=== PATIENT | female | born 1935 | race Native Hawaiian/Other Pacific Islander ===

== ENCOUNTER 2017-09-18 12:02 | Emergency (ER) | payer OTHER, MEDICARE ==
[2017-09-18 12:09] VITALS: BMI 21.4
[2017-09-18 12:13] VITALS: RESP 18; O2SAT 95
--- NOTE | 2017-09-18 15:23 | RAD ---
PROCEDURE: HISTORY: right scapula area ecchymosis s/p fall 2 days ago COMPARISON: None TECHNIQUE: Three views FINDINGS: Acromioclavicular joint space narrowing. Glenohumeral mild osteoarthrosis. No gross rib fracture or gross scapular fracture appreciated. This is a difficult area to evaluate with conventional radiographs. If clinical symptoms persist consider more sensitive evaluation with noncontrast CT of the right scapula IMPRESSION: No gross fracture appreciated. No shoulder dislocation. Mild senescent changes Please note the above comments
[2017-09-18 15:39] LABS: BASO % 0.3 % (0.0-2.0); EOS % 0.1 % (0.0-4.0); LYMPH # 0.6 K/uL (1.0-4.3); MEAN CORPUSCULAR HGB CONC 33.6 g/dL (33.0-37.0); MEAN PLATELET VOLUME 8.7 fL (7.2-11.7); NRBC % 0.1 % (0.0-2.0)
--- NOTE | 2017-09-18 15:39 | RAD ---
PROCEDURE: Radiographs of the Chest and Right Ribs. HISTORY: Right lateral chest wall pain s/p fall 2 days ago COMPARISON: None available. TECHNIQUE: Frontal radiograph of the chest and multiple oblique radiographs of the right ribs were obtained. FINDINGS: RIGHT RIBS: There are slight cortical offset osteopenia ribs probably the latter right 5th, 6th 7th, and 8th in all even the anterior lateral 10 possibly 11th ribs as well. LUNGS: No consolidation noted. Oval opacity projects over the lateral right mid lung zone - of unclear significance. The clip is in the lung or extrinsic to the lung it appears to hide be a nipple shadow . No prior chest x-rays are available to assess its stability PLEURA: No pleural fluid. . CARDIOVASCULAR: Normal sized heart. No pulmonary vascular congestion. OTHER FINDINGS: There is L3 vertebral body compression deformity also incidentally noted of unknown chronicity. IMPRESSION: Multiple nondisplaced a right rib fractures as detailed above. No gross pleural effusion. A right supero lateral pneumothorax is a consideration. The possible pleural reflection on series 6, image 1. Findings were discussed with the ER physician,Dr Perales on 09/18/2017 at 3:35 p.m. Indeterminate oval opacity lateral right mid lung zone. Its origin intrinsic or extrinsic to the right lung is indeterminate. Recommend comparison with any outside chest x-ray L3 vertebral body compression deformity -chronicity unknown
[2017-09-18 15:47] LABS: HEMATOCRIT 34.7 % (34.0-47.0); MEAN CORPUSCULAR HEMOGLOBIN 28.3 pg (27.0-31.0); MONO # 0.7 K/uL (0.0-0.8); MONO % 9.8 % (0.0-10.0); WHITE BLOOD COUNT 7.2 K/uL (4.8-10.8)
[2017-09-18 15:49] LABS: MEAN CELL VOLUME 84.1 fL (81.0-99.0); PLATELET COUNT 115 K/uL (130-400)
[2017-09-18 15:53] LABS: ALB/GLOB RATIO 1.1 (1.0-2.1); ALKALINE PHOSPHATASE 67 U/L (38-126); ALT/SGPT 11 U/L (9-52); AST/SGOT 20 U/L (14-36); BLOOD UREA NITROGEN 13 mg/dL (7-17); CALCIUM 8.5 mg/dl (8.6-10.4); CARBON DIOXIDE 33 mmol/L (22-30); CHLORIDE 83 mmol/L (98-107); GFR AFRICAN-AMERICAN > 60; GLUCOSE,RANDOM 97 mg/dL (65-105); POTASSIUM 2.7 mmol/L (3.6-5.2); SODIUM 127 mmol/L (132-148)
--- NOTE | 2017-09-18 16:34 | CT ---
PROCEDURE: CT Lumbar Spine without contrast HISTORY: Low back pain. fx on x-ray. COMPARISON: None. TECHNIQUE: Axial computed tomography images were obtained of the lumbar spine without the use of intravenous contrast. Coronal and sagittal reformatted images were created and reviewed. Radiation dose: Total exam DLP = 347.41 mGy-cm. This CT exam was performed using one or more of the following dose reduction techniques: Automated exposure control, adjustment of the mA and/or kV according to patient size, and/or use of iterative reconstruction technique. FINDINGS: VERTEBRAE: There is a severe compression fracture of the L3 vertebral body with mild retropulsion of the posterior margins of the vertebral body particularly toward the left. This results and a moderate severe right lateral recess stenosis at the mid vertebral body level but not at L2-3 or at L3-4. No spondylolisthesis or additional fracture. Lumbar curvature is generally normal. Diffuse osteopenia suggests osteoporosis which is the likely etiology, at least in part, for the L3 fracture. No definitive suspicious lytic or blastic change. Multilevel facet arthropathy is appreciated. Prevertebral paraspinal soft tissues appear grossly nonfocal. DISCS/SPINAL CANAL/NEURAL FORAMINA: T11-12, T12-L1 and, L1-2: No bony central canal or neural foraminal stenosis is encountered. L2-3: Borderline disc bulging is appreciated without significant stenosis resulting. Facet arthropathy is mild. No significant neural foraminal stenosis. L3-4: L3 compression fractures appreciated cephalad to this level. Limited disc bulging is appreciated flattening the ventral thecal sac and encroaching the right greater than left lateral recesses without significant central canal stenosis resulting. Facet arthropathy appears mild. No significant neural foraminal stenosis. L4-5: A generalized disc bulge is moderate in overall volume however facet arthropathy is gross, resulting in moderate central canal stenosis, most concentrated at the left greater the right lateral recesses. No significant neural foraminal stenosis bilaterally. L5-S1: Limited disc bulging is appreciate here and although there is relatively prominent facet arthropathy, no significant stenosis is encountered at the bilateral neural foramina or at the central canal. PARASPINAL SOFT TISSUES: Unremarkable. OTHER FINDINGS: None. IMPRESSION: A severe L3 compression fractures appreciated resulting in lateral recess stenosis greater at the left than right sides of the central canal and a mild generalized central canal stenosis. This stenosis occurs above L3-4 as well as below L2-3. Moderate degenerative L4-5 central canal stenosis. No definitive disc herniation grossly evident however MRI is more sensitive. No additional fracture. Diffuse osteopenia suggests osteoporosis.
[2017-09-18 16:45] LABS: NEUTROPHIL 84 % (50-75); TOTAL CELLS COUNTED 100
--- NOTE | 2017-09-18 16:58 | CT ---
PROCEDURE: CT Chest without contrast HISTORY: Right sided pain s/p fall COMPARISON: Chest radiograph also performed 09/18/2017. TECHNIQUE: Contiguous axial images were obtained through the chest without intravenous contrast enhancement. Sagittal and coronal reconstructions were performed. Radiation dose (DLP): 200.14 mGy-cm. This CT exam was performed using one or more of the following dose reduction techniques: Automated exposure control, adjustment of the mA and/or kV according to patient size, and/or use of iterative reconstruction technique. FINDINGS: LUNGS: Fibrotic changes in the left apex and gross bronchiectasis is appreciated affecting left upper lobe with hyperexpansion of the left lower lobe a chronic atelectasis felt a the present the left apex where a cavitary lesion is simulated in. This is felt to represent a gross dictate atelectatic left upper lobe with gross bronchiectasis associated likely on a chronic basis. MEDIASTINUM: The lack images contrast limits evaluation of the mediastinum. No gross lymphadenopathy is appreciable including the bilateral hilar regions. The thoracic aorta is normal in caliber swells the main pulmonary artery. Cardiac size appears upper limits of normal. Normal sized heart. PLEURA: There is a partially calcified subpleural granuloma at the right upper lobe in images 44 through 46 series 4 likely corresponding to the ovoid calcific density in chest radiograph 09/18/2017 as well. BONES: There is severe compression fracture of the T4 vertebral body. There is minimal retropulsion of the right and mid T4 vertebral body posterior wall into the central canal without significantly causing intra canal stenosis. The right lateral recess is stenosed as result. Right 3rd, 4th, 5th and 6th anterolateral rib fractures are identified as well as left 4th and 5th anterolateral rib fractures. Nondisplaced lateral fracture of the right 7th, 8th and 9th ribs are also identified. Diffuse osteopenia suggests osteoporosis. UPPER ABDOMEN: Cholelithiasis identified within a mildly distended gallbladder. OTHER FINDINGS: None. IMPRESSION: 1. Multiple bilateral rib fractures are appreciated but are seen greater the right than left sides as described above. There is also severe T4 vertebral body compression fracture without spondylolisthesis or prominent central canal stenosis resulting. No pneumothorax or pleural effusion bilaterally. 2. Extensive bronchiectasis and gross volume loss/scarring is felt to be affecting the left upper lobe which is minimal in overall volume. A hyper expanded left low left lower lobe is felt to present. There is no distant prior study available for comparison and clinical follow-up is advised to demonstrate stability of this finding. Underlying neoplasm would be difficult to fully exclude here.
[2017-09-18] MEDS ORDERED: Potassium Chloride 20 mEq ER Tab PO STA (17:50)
[2017-09-18] MEDS ORDERED: Potassium Chloride 20 mEq ER Tab PO ONE (17:58)
--- NOTE | 2017-09-18 18:01 | C.PDOC ---
- HPI Time Seen by Provider: 09/18/17 13:00 Chief Complaint (Nursing): Trauma History Per: Patient, Family History/Exam Limitations: other (Dementia) Injury Occurred (Timing): Days Ago: (2) Location Of Injury: Right: Chest Severity: Moderate Additional History Per: Prior Records - Fall Fall:Prior To Injury: Tripped (over a vaccum filter screen cleaner) Past Medical History Reviewed: Historical Data, Nursing Documentation, Vital Signs Vital Signs: Last Vital Signs Temp 98.0 F 09/18/17 15:30 Pulse 83 09/18/17 15:30 Resp 18 09/18/17 15:30 BP 142/71 09/18/17 15:30 Pulse Ox 95 09/18/17 15:30 - Medical History PMH: Asthma, Dementia, Parkinson's Disease Surgical History: Appendectomy Family History: States: Unknown Family Hx - Social History Hx Tobacco Use: No Hx Alcohol Use: No Hx Substance Use: No - Immunization History Hx Tetanus Toxoid Vaccination: No Hx Influenza Vaccination: No Hx Pneumococcal Vaccination: No Review Of Systems Except As Marked, All Systems Reviewed And Found Negative. Constitutional: Negative for: Fever Cardiovascular: Positive for: Chest Pain Respiratory: Negative for: Hemoptysis Gastrointestinal: Negative for: Vomiting, Abdominal Pain Genitourinary: Negative for: Hematuria Musculoskeletal: Positive for: Back Pain. Negative for: Neck Pain Skin: Negative for: Rash Neurological: Negative for: Weakness, Numbness, Seizures, Altered Mental Status , Headache Physical Exam - Physical Exam Appears: Non-toxic, No Acute Distress, Chronically Ill Skin: Warm, Dry Head: Atraumatic, Normacephalic Eye(s): bilateral: PERRL, EOMI Neck: Normal ROM, No Midline Cervical Tenderness, No Step Off Deformity, Supple Chest: Symmetrical, No Deformity, Tenderness (right sided) Cardiovascular: Rhythm Regular Respiratory: Normal Breath Sounds, No Accessory Muscle Use Gastrointestinal/Abdominal: Soft, No Tenderness Back: Vertebral Tenderness (lumbar), Other (ecchymoses on right upper back) Extremity: Normal ROM, No Deformity Neurological/Psych: Normal Motor, Normal Sensation ED Course And Treatment - Laboratory Results Result Diagrams: 09/18/17 15:36 09/18/17 15:36 Lab Interpretation: Abnormal Interpretation Of Abnormal: Hypokalemia O2 Sat by Pulse Oximetry: 95 Pulse Ox Interpretation: Normal - CT Scan/US CT chest Other Rad Studies (CT/US): Read By Radiologist, Radiology Report Reviewed CT/US Interpretation: IMPRESSION: 1. Multiple bilateral rib fractures are appreciated but are seen greater the right than left sides as described above. There is also severe T4 vertebral body compression fracture without spondylolisthesis or prominent central canal stenosis resulting. No pneumothorax or pleural effusion bilaterally. 2. Extensive bronchiectasis and gross volume loss/scarring is felt to be affecting the left upper lobe which is minimal in overall volume. A hyper expanded left low left lower lobe is felt to present. There is no distant prior study available for comparison and clinical follow-up is advised to demonstrate stability of this finding. Underlying neoplasm would be difficult to fully exclude here. Lumbar spine CT Other Rad Studies (CT/US): Read By Radiologist, Radiology Report Reviewed CT/US Interpretation: IMPRESSION: A severe L3 compression fractures appreciated resulting in lateral recess stenosis greater at the left than right sides of the central canal and a mild generalized central canal stenosis. This stenosis occurs above L3-4 as well as below L2-3. Moderate degenerative L4-5 central canal stenosis. No definitive disc herniation grossly evident however MRI is more sensitive. No additional fracture. Diffuse osteopenia suggests osteoporosis. Progress Note: Pt wants to go home. And her (who is her P.O.A.) insists on taking her home even after explaining to him that she has multiple rib fractures, low potassium and spinal francture and that she can become paralysed or if she goes home. Against Medical Advice - AMA Patient Left Against Medical Advice: The patient declines admission to the hospital and wishes to leave the Emergency Department. This action is against my medical advice. This decision was made with informed refusal. The patient was told that admission to the hospital is necessary. Explanation of the reasons why were discussed. The risks of leaving were explained to the patient and include, but are not limited to, worsening of known or currently unknown conditions, permanent disability and from undiagnosed or untreated conditions. The patient has the capacity to make this informed decision and understands my explanation of the current medical problem and risks of leaving. The patient voluntarily accepts these risks and signed an AMA form documenting our conversation. The patient was given the opportunity to ask questions and reconsider. The patient was encouraged to return to the Emergency Department at any time for further care. Disposition Counseled Patient/Family Regarding: Studies Performed, Diagnosis, Need For Followup, Rx Given - Disposition Disposition: AGAINST MEDICAL ADVICE Disposition Time: 18:05 Condition: GUARDED Additional Instructions: Follow up with your doctor as soon as possible. Return to the ER if you change your mind or if she develops weakness, numbness, shortness of breath, fever, worsening of symptoms or if you have any other concerns. Prescriptions: Potassium Chloride [K-Dur 20 mEq ER Tab] 20 meq PO DAILY #10 tab traMADol/Acetaminophen [Ultracet 325 MG-37.5 MG] 1 tab PO Q4 PRN #30 tab PRN Reason: Pain Instructions: Vertebral Compression Fracture (ED), Rib Fracture (ED), Hypokalemia (ED), Against Medical Advice (ED) Forms: Guidefitter (Macedonian) - Clinical Impression Clinical Impression: Ribs, multiple fractures, Compression fracture of L3 lumbar vertebra, Hypokalemia, Left against medical advice
[2017-09-18 18:25] VITALS: BP 153/79; PULSE 81; TEMP 98.5
== END 2017-09-18 18:26 | disposition left against medical advice (07) ==
LOC: C.ER 12:02
DX: S22.41XA Multiple fractures of ribs, right side, initial encounter for closed fracture (principal); W01.0XXA Fall on same level from slipping, tripping and stumbling without subsequent striking against object, initial encounter; M48.56XA Collapsed vertebra, not elsewhere classified, lumbar region, initial encounter for fracture; E87.6 Hypokalemia; G20 Parkinson's disease; F03.90 Unspecified dementia, unspecified severity, without behavioral disturbance, psychotic disturbance, mood disturbance, and anxiety
CPT/HCPCS: 71101; 71250; 72131; 73010; 80053; 84484; 85025; 85610; 85730; 96374; 99285; J1885